=== PATIENT | female | born 2000 | race Caucasian/White ===

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

== ENCOUNTER 2020-09-23 13:37 | Emergency (ER) | payer BC, OTHER ==
[2020-09-23 13:43] VITALS: BP 121/62; PULSE 71; TEMP 98.6; BMI 27.1
[2020-09-23] MEDS ORDERED: ONDANSETRON *ODT* 4 MG TABLET SL ONE (15:01)
[2020-09-23] MEDS ORDERED: ONDANSETRON *ODT* 4 MG TABLET ONE (16:14)
[2020-09-23 17:09] LABS: BASO % 0.4 % (0-2.0); CHLORIDE 107 mmol/L (98-107); EOS % 3.5 % (0-4.5); HEMATOCRIT 39.5 % (32.4-45.2); HEMOGLOBIN 13.2 GM/dL (10.7-15.3); LYMPH % 18.8 % (8-40); MCH 29.1 pg (25.7-33.7); MCHC 33.4 g/dl (32.0-36.0); MEAN CELL VOLUME 87.2 fl (80-96); MEAN PLT VOLUME 9.2 fl (7.5-11.1); MONO % 6.9 % (3.8-10.2); NEUT % 70.4 % (42.8-82.8); PLATELET COUNT 275 K/MM3 (134-434); RBC 4.53 M/mm3 (3.60-5.2); RDW 14.3 % (11.6-15.6); SODIUM 138 mmol/L (136-145); WHITE BLOOD COUNT 7.8 K/mm3 (4.0-10.0)
[2020-09-23 17:11] LABS: ANION GAP 8 MMOL/L (8-16); BLOOD UREA NITROGEN 8.1 mg/dL (7-18); CALCIUM 9.3 mg/dL (8.5-10.1); CO2 23 mmol/L (21-32); GLUCOSE,RANDOM 82 mg/dL (74-106)
[2020-09-23 17:15] LABS: CREATININE 0.6 mg/dL (0.55-1.3)
[2020-09-23 18:07] LABS: PH,URINE 5.5 (5.0-8.0); URINE APPEARANCE CLEAR; URINE BILIRUBIN NEGATIVE (NEGATIVE); URINE COLOR YELLOW; URINE GLUCOSE (UA) NEGATIVE (NEGATIVE); URINE KETONE NEGATIVE (NEGATIVE); URINE LEUK ESTERASE NEGATIVE (NEGATIVE); URINE NITRITE NEGATIVE (NEGATIVE); URINE PROTEIN NEGATIVE (NEGATIVE); URINE UROBILINOGEN 0.2 mg/dL (0.2-1.0)
== END 2020-09-23 16:30 | disposition left against medical advice (07) ==
LOC: JER 13:37
DX: O20.8 Other hemorrhage in early pregnancy (principal)
CPT/HCPCS: 36415; 76801-TC; 80048; 81003; 84702; 85025; 86850; 86900; 86901; 87086; 99284-25; Q0162

== ENCOUNTER 2023-10-19 01:45 | Inpatient (IN) | payer BC ==
[2023-10-19 02:20] LABS: BASO % 0.2 % (0-2.0); EOS % 2.9 % (0-4.5); HEMATOCRIT 33.5 % (32.4-45.2); HEMOGLOBIN 11.5 GM/dL (10.7-15.3); LYMPH % 19.7 % (8-40); MCH 28.6 pg (25.7-33.7); MCHC 34.3 g/dl (32.0-36.0); MEAN CELL VOLUME 83.5 fl (80-96); MEAN PLT VOLUME 9.7 fl (7.5-11.1); MONO % 8.5 % (3.8-10.2); NEUT % 68.7 % (42.8-82.8); PLATELET COUNT 217 10^3/uL (134-434); RBC 4.01 M/mm3 (3.60-5.2); WHITE BLOOD COUNT 10.6 K/mm3 (4.0-10.0)
[2023-10-19] MEDS ORDERED: OXYTOCIN 20 UNITS in 0.9% NS 20 UNIT/1,000 ML INFUS.BAG IV ONE (02:20)
[2023-10-19] MEDS ORDERED: LIDOCAINE HCL 1% PRESERVATIVE FREE - 30ML VIAL ONE (02:24)
[2023-10-19 02:29] LABS: INR 0.93 (0.83-1.09); PROTHROMBIN TIME (PATIENT) 10.5 SEC (9.7-13.0)
[2023-10-19] MEDS: OXYTOCIN 20 UNITS in 0.9% NS 20 UNIT/1,000 ML INFUS.BAG IV SCH (02:29)
[2023-10-19] MEDS ORDERED: OXYTOCIN 10 UNITS/ML VIAL ONE (02:30)
[2023-10-19 02:31] LABS: ACTIVATED PTT 27.1 SECONDS (25.2-36.5)
[2023-10-19 02:40] LABS: CHLORIDE 107 mmol/L (98-107); POTASSIUM 3.5 mmol/L (3.5-5.1); SODIUM 135 mmol/L (136-145)
[2023-10-19 02:41] LABS: CALCIUM 9.4 mg/dL (8.5-10.1)
[2023-10-19 02:42] LABS: ANION GAP 8 mmol/L (4-13); BLOOD UREA NITROGEN 9.4 mg/dL (7-18); CO2 21 mmol/L (21-32); GLUCOSE,RANDOM 93 mg/dL (74-106)
[2023-10-19 02:45] LABS: CREATININE 0.6 mg/dL (0.55-1.3)
[2023-10-19] MEDS ORDERED: BENZOCAINE 28 GM HEMORRHOIDAL OINTMENT TP PRN (03:25)
[2023-10-19] MEDS ORDERED: ACETAMINOPHEN 325 MG TABLET (FP) PO PRN (03:25)
[2023-10-19] MEDS ORDERED: METHYLERGONOVINE MALEATE 0.2 MG/1 ML AMP IM PRN (03:25)
[2023-10-19] MEDS ORDERED: WITCH HAZEL 50% (TUCKS) 40 PAD/JAR PAD TP PRN (03:25)
[2023-10-19] MEDS ORDERED: BISACODYL 10 MG SUPP.RECT RC PRN (03:25)
[2023-10-19] MEDS ORDERED: BENZOCAINE 20% 57 GM BOTTLE TP PRN (03:25)
[2023-10-19 03:28] VITALS: BMI 32.8
[2023-10-19 03:39] LABS: HIV INTERPRETATION NEGATIVE (NEGATIVE)
[2023-10-19] MEDS: IBUPROFEN 600 MG TABLET (FP) PO PRN (05:23)
[2023-10-19] MEDS: FERROUS SO4 325 MG TABLET (FP) PO SCH (08:45)
[2023-10-19] MEDS: PRENATAL VITAMINS W/ FOLIC ACID TABLET (FP) PO SCH (09:28)
[2023-10-19] MEDS ORDERED: DIPHTH,PERTUSS(ACELL),TET 0.5 ML DISP.SYRIN IM ONE (10:00)
[2023-10-19 11:28] LABS: POC NITRAZINE POS
[2023-10-20 08:20] LABS: BASO % 0.6 % (0-2.0); EOS % 3.6 % (0-4.5); HEMATOCRIT 31.4 % (32.4-45.2); HEMOGLOBIN 10.8 GM/dL (10.7-15.3); LYMPH % 27.3 % (8-40); MCH 29.1 pg (25.7-33.7); MCHC 34.5 g/dl (32.0-36.0); MEAN CELL VOLUME 84.4 fl (80-96); MEAN PLT VOLUME 10.3 fl (7.5-11.1); MONO % 9.8 % (3.8-10.2); NEUT % 58.7 % (42.8-82.8); PLATELET COUNT 175 10^3/uL (134-434); RBC 3.72 M/mm3 (3.60-5.2); RDW 13.9 % (11.6-15.6); WHITE BLOOD COUNT 7.9 K/mm3 (4.0-10.0)
[2023-10-20] MEDS: DIPHTH,PERTUSS(ACELL),TET 0.5 ML DISP.SYRIN IM ONE (11:14)
[2023-10-20] MEDS: FLU VACCINE (FLULAVAL) PF 60 MCG/0.5 ML SYRINGE 2023-2024 IM ONE (11:20)
[2023-10-20] MEDS: SENNOSIDES/DOCUSATE COMBO (SENNA PLUS) TABLET (UD) PO PRN (22:15)
[2023-10-20 22:35] VITALS: PULSE 73; RESP 18
[2023-10-21 11:06] VITALS: BP 129/80; TEMP 98
== END 2023-10-21 12:10 | disposition home or self-care (01) | DRG 807 ==
LOC: JDEL 01:45 → JLDR 01:50 → J3W 05:00
PROVIDERS: ADMIT Obstetrics & Gynecology Obstetrics; ATTEND Obstetrics & Gynecology Obstetrics
PROC: 10E0XZZ Delivery of Products of Conception, External Approach (ICD-10-PCS; principal; 2023-10-19)
DX: O80 Encounter for full-term uncomplicated delivery (principal); Z37.0 Single live birth; Z3A.39 39 weeks gestation of pregnancy
CPT/HCPCS: 36415; 80048; 83986-QW; 85025; 85610; 85730; 86780; 86803; 86850; 86900; 86901; 87389; 90686; 90715; G0008